=== PATIENT | male | born 1995 | race Caucasian/White ===

== ENCOUNTER 2017-02-08 19:09 | Emergency (ER) | payer OTHER ==
[2017-02-08 19:15] VITALS: BP 147/83
--- NOTE | 2017-02-08 19:34 | EDM.PDOC ---
ED HPI GENERAL MEDICAL PROBLEM - General Chief Complaint: Skin Complaint Stated Complaint: BOIL ON LEG, [id number] Time Seen by Provider: 02/08/17 19:29 Source of Information: Reports: Patient History Limitations: Reports: No Limitations - History of Present Illness INITIAL COMMENTS - FREE TEXT/NARRATIVE: boil to left upper inner thigh for one week, has not tried anything for it, Seems to be getting bigger, No previous skin infections. No fever, No drainage from wound Right Upper Leg Pain Score (Numeric/FACES): 5 - Related Data Allergies Allergy/AdvReac Type Severity Reaction Status Date / Time bee pollen Allergy Swollen Verified 02/08/17 19:15 Tongue shrimp Allergy Swelling Verified 02/08/17 19:15 Home Meds: Home Meds . [No Known Home Meds] 02/08/17 [History] Past Medical History - Past Health History Medical/Surgical History: Denies Medical/Surgical History Social & Family History - Tobacco Use Smoking Status *Q: Never Smoker Second Hand Smoke Exposure: No - Recreational Drug Use Recreational Drug Use: No ED ROS GENERAL - Review of Systems Review Of Systems: ROS reveals no pertinent complaints other than HPI. ED EXAM, SKIN/RASH Exam: See Below Exam Limited By: No Limitations General Appearance: Alert, No Apparent Distress, Other (unkempt) Eye Exam: Bilateral Eye: EOMI Throat/Mouth: Normal Inspection Respiratory/Chest: No Respiratory Distress, Lungs Clear Cardiovascular: Normal Peripheral Pulses, Regular Rate, Rhythm Neurological: Alert, Oriented Psychiatric: Normal Affect Skin: Warm, Dry Characteristics: Other (1cm raised lesion left upper inner thigh with white puntate oen center, no drainage, firm. ) Course - Vital Signs Last Recorded V/S: Last Vital Signs Temp 97.5 F 02/08/17 19:11 Pulse 85 02/08/17 19:11 Resp 18 02/08/17 19:11 BP 147/83 H 02/08/17 19:11 Pulse Ox 99 02/08/17 19:11 Departure - Departure Time of Disposition: 19:32 Disposition: Home, Self-Care 01 Condition: Good Clinical Impression: Abscess - Discharge Information Instructions: Abscess Forms: ED Department Discharge Additional Instructions: warm soak 15minutes 3 times daily tylenol or ibuprofen for discomfort clindamycin 300mg 3 times dialy for one week follow up if not improving, fever or worsening
== END 2017-02-08 19:36 | disposition home or self-care (01) ==
LOC: DL.ED 19:09
DX: L02.416 Cutaneous abscess of left lower limb (principal); Z91.030 Bee allergy status
CPT/HCPCS: 99282